=== PATIENT | male | born 1955 | race Caucasian/White ===

== ENCOUNTER 2017-03-29 13:42 | Day surgery (SDC) | payer OTHER ==
[~2017-03-29] VITALS: Ht 180.3 cm; Wt 88.6 kg
[~2017-03-29 13:42] MED LIST: BUPIVACAINE/PF 0.25% ONE; CEFAZOLIN 1,000 MG ONE; CELE200C; DEXAMETHASONE 4 MG/ML, 1ML ONE; FLUT16SP NAS; KETOROLAC 30 MG/1 ML ONE; METOCLOPRAMIDE 5 MG/ML, 2ML ONE; ONDANSETRON 2MG/ML, 2ML ONE; OXYC-305; PANT20TA2; PANT40TA5 PO; PROPOFOL 10 MG/ML, 20ML ONE; SIMV40TA3; SIMV40TA3 PO
[2017-03-29] MEDS ORDERED: LACTATED RINGERS 1,000 ML IV SCH (14:08)
[2017-03-29 14:12] VITALS: BP 149/92
[2017-03-29] MEDS ORDERED: FENTANYL PF 250 MCG/5ML ONE (15:13)
[2017-03-29] MEDS ORDERED: BUPIVACAINE/PF 0.25% INJ ONE (15:53)
[2017-03-29] MEDS ORDERED: PROMETHAZINE 25 MG/ML, 1ML IV PRN (16:00)
[2017-03-29] MEDS ORDERED: LABETALOL 5MG/ML, 20ML IV PRN (16:00)
[2017-03-29] MEDS ORDERED: hydrALAzine 20 MG/ML, 1ML IV PRN (16:00)
[2017-03-29] MEDS ORDERED: HYDROmorphone 1 MG/ML, 1ML IV PRN (16:00)
[2017-03-29] MEDS ORDERED: ONDANSETRON 2MG/ML, 2ML IVPush PRN (16:00)
[2017-03-29] MEDS ORDERED: OXYcodone 5 MG/5 ML ORAL.SOL UDC PO PRN (16:00)
[2017-03-29] MEDS ORDERED: MIDAZOLAM 1 MG/ML, 2ML IV PRN (16:00)
[2017-03-29] MEDS ORDERED: FENTANYL PF 100 MCG/2ML IV PRN (16:00)
[2017-03-29] MEDS ORDERED: MEPERIDINE/PF 25MG/0.5ML IVPush PRN (16:00)
[2017-03-29] MEDS ORDERED: FENTANYL PF 100 MCG/2ML ONE (16:50)
[2017-03-29] MEDS ORDERED: PROMETHAZINE 25 MG/ML, 1ML ONE (16:50)
[2017-03-29] MEDS ORDERED: OXYcodone 5 MG/5 ML ORAL.SOL UDC ONE (16:51)
== END 2017-03-29 18:35 ==
LOC: OR 13:42
PROVIDERS: ATTEND Urology
DX: N45.1 Epididymitis (principal); E78.5 Hyperlipidemia, unspecified; K21.9 Gastro-esophageal reflux disease without esophagitis; Z88.1 Allergy status to other antibiotic agents; Z88.3 Allergy status to other anti-infective agents; Z88.0 Allergy status to penicillin; Z98.890 Other specified postprocedural states; Z96.659 Presence of unspecified artificial knee joint
CPT/HCPCS: 54860; 88304; J0690; J1100; J1885; J2405; J2704; J2765; J3010; J3490; J7120

== ENCOUNTER → 2019-11-04 | Outpatient (CLI) | payer OTHER, MEDICARE ==
[~2019-11-04] MED LIST changes: +AMIT25TA PO; -BUPIVACAINE/PF 0.25% ONE; -CEFAZOLIN 1,000 MG ONE; -DEXAMETHASONE 4 MG/ML, 1ML ONE; -FLUT16SP NAS; +FLUT16SP24 NAS; -KETOROLAC 30 MG/1 ML ONE; -METOCLOPRAMIDE 5 MG/ML, 2ML ONE; +MULT-658 PO; -ONDANSETRON 2MG/ML, 2ML ONE; -PROPOFOL 10 MG/ML, 20ML ONE; +TAMS-11 PO
[2019-11-04 12:14] LABS: BASOPHILS # (AUTO) 0.02 x10^3/uL (0-0.1); BASOPHILS % (AUTO) 0 % (0-1); EOSINOPHILS # (AUTO) 0.33 x10^3/uL (0-0.4); EOSINOPHILS % (AUTO) 5 % (1-7); LYMPHOCYTES # (AUTO) 1.41 x10^3/uL (1-3.4); LYMPHOCYTES % (AUTO) 22 % (22-44); MD NO; MEAN CORPUSCULAR HGB CONC 34.3 g/dL (33.2-36.2); MEAN CORPUSCULAR VOLUME 90.3 fL (81-97); MEAN PLATELET VOLUME 8.3 fL (7.4-10.4); MONOCYTES # (AUTO) 0.31 x10^3/uL (0.2-0.8); MONOCYTES % (AUTO) 5 % (2-9); NEUTROPHILS # (AUTO) 4.49 x10^3/uL (1.8-6.8); NEUTROPHILS % (AUTO) 68 % (42-75); PLATELET COUNT 206 x10^3/uL (130-400); RED BLOOD COUNT 5.06 x10^6/uL (4.38-5.82); RED CELL DISTRIBUTION WIDTH 14.5 % (9.4-14.8)
[2019-11-04 12:15] LABS: MICROSCOPIC NOT IND
[2019-11-04 12:22] LABS: ALANINE AMINOTRANSFERASE 17 U/L (12-78); ALBUMIN 3.4 g/dL (3.4-5.0); ANION GAP 7 mmol/L (5-15); CHLORIDE 113 mmol/L (98-107); CREATININE 0.98 mg/dL (0.7-1.3)
[2019-11-04 12:24] LABS: ALKALINE PHOSPHATASE 84 U/L (45-117); BILIRUBIN,TOTAL 0.5 mg/dL (0.2-1.0); TOTAL PROTEIN 6.6 g/dL (6.4-8.2)
== END | disposition home or self-care (01) ==
LOC: STAR 10:58
PROVIDERS: ATTEND Urology
DX: Z01.818 Encounter for other preprocedural examination (principal); N40.1 Benign prostatic hyperplasia with lower urinary tract symptoms; I44.4 Left anterior fascicular block
CPT/HCPCS: 36415; 80053; 81003; 85025; 87086; 93005

== ENCOUNTER 2019-11-18 13:36 | Day surgery (SDC) | payer OTHER, MEDICARE ==
[~2019-11-18] VITALS: Ht 180.3 cm; Wt 85.0 kg
[~2019-11-18 13:36] MED LIST changes: +SIMV40TA20; +SIMV40TA20 PO; -SIMV40TA3; -SIMV40TA3 PO
[2019-11-18] MEDS ORDERED: MIDAZOLAM 1 MG/ML, 2ML ONE (16:03)
[2019-11-18] MEDS ORDERED: FENTANYL PF 250 MCG/5ML ONE (16:03)
[2019-11-18] MEDS ORDERED: DEXAMETHASONE 4 MG/ML, 1ML ONE ×3 (16:06→16:21)
[2019-11-18] MEDS ORDERED: ROCURONIUM 10MG/ML,5ML ONE (16:06)
[2019-11-18] MEDS ORDERED: PROPOFOL 10 MG/ML, 20ML ONE ×2 (16:06→16:21)
[2019-11-18] MEDS ORDERED: SUCCINYLCHOLINE 20 MG/ML, 10ML ONE (16:21)
[2019-11-18] MEDS ORDERED: ONDANSETRON 2MG/ML, 2ML ONE (16:21)
[2019-11-18] MEDS ORDERED: CEFAZOLIN 1,000 MG ONE (16:21)
[2019-11-18] MEDS ORDERED: ROCURONIUM 10 MG/ML,10ML ONE (16:21)
[2019-11-18] MEDS ORDERED: hydrALAzine 20 MG/ML, 1ML IV PRN (17:00)
[2019-11-18] MEDS ORDERED: HYDROmorphone 2 MG/ML, 1ML IVPush PRN (17:00)
[2019-11-18] MEDS ORDERED: PROMETHAZINE 12.5 MG SUPP PR PRN (17:00)
[2019-11-18] MEDS ORDERED: HALOPERIDOL 5 MG/ML IV PRN (17:00)
[2019-11-18] MEDS ORDERED: PROMETHAZINE 25 MG/ML, 1ML IV PRN (17:00)
[2019-11-18] MEDS ORDERED: MEPERIDINE/PF 25MG/ML,1ML IVPush PRN (17:00)
[2019-11-18] MEDS ORDERED: ONDANSETRON ODT 8 MG PO PRN (17:00)
[2019-11-18] MEDS ORDERED: ALBUTEROL SULFATE 2.5 MG/3 ML NPPB PRN (17:00)
[2019-11-18] MEDS ORDERED: EPHEDRINE 50 MG/ML, 1ML IVPush PRN (17:00)
[2019-11-18] MEDS ORDERED: OXYcodone 5 MG/5 ML ORAL.SOL UDC PO PRN (17:00)
[2019-11-18] MEDS ORDERED: LABETALOL 5MG/ML, 20ML IV PRN (17:00)
[2019-11-18] MEDS ORDERED: ONDANSETRON 2MG/ML, 2ML IV PRN (17:00)
[2019-11-18] MEDS ORDERED: MIDAZOLAM 1 MG/ML, 2ML IV PRN (17:00)
[2019-11-18] MEDS ORDERED: FENTANYL PF 100 MCG/2ML IV PRN (17:00)
[2019-11-18] MEDS ORDERED: DIAZEPAM 5 MG/ML, 2ML IVPush PRN (17:00)
[2019-11-18] MEDS ORDERED: OXYcodone 5 MG/5 ML ORAL.SOL UDC ONE (18:38)
[2019-11-18] MEDS ORDERED: ONDANSETRON 2MG/ML, 2ML IVPush PRN (19:30)
[2019-11-18] MEDS ORDERED: HYDROcodone/APAP 5/325 TABLET PO PRN (19:30)
[2019-11-18] MEDS ORDERED: LACTATED RINGERS 1,000 ML IV SCH (19:30)
[2019-11-18 20:02] VITALS: BP 131/66
[2019-11-18] MEDS ORDERED: SIMVASTATIN 40 MG TABLET PO SCH (21:00)
[2019-11-18] MEDS ORDERED: AMITRIPTYLINE 50 MG TABLET PO SCH (21:00)
[2019-11-18] MEDS ORDERED: AMITRIPTYLINE 25 MG TABLET PO SCH (21:00)
[2019-11-19] MEDS ORDERED: PANTOPROZOLE 40MG TABLET PO SCH (06:00)
[2019-11-19] MEDS ORDERED: MULTIVITAMIN 1 TABLET PO SCH (09:00)
== END 2019-11-18 20:55 | disposition home or self-care (01) ==
LOC: OR 13:36 → 4NE 18:42 → OR 20:55
PROVIDERS: ATTEND Urology
DX: N40.1 Benign prostatic hyperplasia with lower urinary tract symptoms (principal); N13.8 Other obstructive and reflux uropathy; R35.1 Nocturia; I10 Essential (primary) hypertension; K21.9 Gastro-esophageal reflux disease without esophagitis; Z88.8 Allergy status to other drugs, medicaments and biological substances; Z88.0 Allergy status to penicillin; Z79.899 Other long term (current) drug therapy; Z88.6 Allergy status to analgesic agent; Z88.1 Allergy status to other antibiotic agents
CPT/HCPCS: 52648; J0330; J0690; J1100; J2250; J2405; J2704; J3010; G0378